=== PATIENT | male | born 1940 | race African-American/Black ===

== ENCOUNTER 2020-01-17 07:25 | Emergency (ER) | payer MEDICARE, MEDICAID, OTHER ==
[~2020-01-17] VITALS: Ht 180.3 cm; Wt 77.0 kg
[2020-01-17 08:15] LABS: BASOPHILS % 1.2 % (0.0-2.0); EOSINOPHILS % 2.7 % (0.0-5.0); HEMATOCRIT. 42.3 % (42.0-52.0); HEMOGLOBIN. 14.2 g/dL (14.0-18.0); LYMPHOCYTES % 24.2 % (20.0-50.0); MEAN CORPUSCULAR HEMOGLOBIN 28.5 pg (28.0-32.0); MEAN CORPUSCULAR VOLUME 85.1 fL (80.0-94.0); MEAN PLATELET VOLUME 8.4 fl (7.4-10.4); NEUTROPHILS % 62.9 % (40.0-76.0); PLATELET 141 x1000/uL (130-400); RED BLOOD CELL COUNT 4.97 mill/uL (4.7-6.1); RED CELL DISTRIBUTION WIDTH 14.4 % (11.6-14.6)
[2020-01-17 08:16] LABS: CHLORIDE 106 mEq/L (98-107)
[2020-01-17 08:55] VITALS: BP 112/70
== END 2020-01-17 08:55 | disposition home or self-care (01) ==
LOC: ER 07:25 → EDBD 07:25 → ER 08:55
DX: I10 Essential (primary) hypertension (principal)
CPT/HCPCS: 36415; 80053; 85025; 93005; 99284